=== PATIENT | male | born 1945 | race Caucasian/White ===

== ENCOUNTER 2022-03-23 06:46 | Day surgery (SDC) | payer MEDICARE, SELFPAY ==
[2022-03-22 10:59] LABS: BASOPHILS # (AUTO) 0.1 X10'3 (0-0.2); BASOPHILS % (AUTO) 0.5 % (0-1); EOSINOPHILS # (AUTO) 0.2 X10'3 (0-0.9); EOSINOPHILS % (AUTO) 1.6 % (0-6); HEMATOCRIT 34.3 % (42.0-52.0); HEMOGLOBIN 11.6 g/dl (14.0-17.9); LYMPHOCYTES # (AUTO) 1.1 X10'3 (1.1-4.8); LYMPHOCYTES % (AUTO) 10.7 % (21-51); MEAN CORPUSCULAR HGB CONC 33.9 g/dL (33.0-36.5); MEAN CORPUSCULAR VOLUME 91.6 FL (78-98); MEAN PLATELET VOLUME 9.5 FL (7.4-10.4); MONOCYTES # (AUTO) 0.8 X10'3 (0-0.9); MONOCYTES % (AUTO) 7.4 % (2-12); NEUTROPHILS # (AUTO) 8.6 X10'3 (1.8-7.7); NEUTROPHILS % (AUTO) 79.8 % (42-75); PLATELET COUNT 178 X10'3 (140-440); RED BLOOD COUNT 3.75 X10'6 (4.70-6.10); RED CELL DISTRIBUTION WIDTH 16.3 % (11.5-14.5); WHITE BLOOD COUNT 10.8 X10'3 (4.5-11.0)
[2022-03-22 11:10] LABS: ALBUMIN 4.2 G/DL (3.4-5.0); ANION GAP 10 (8-16); BLOOD UREA NITROGEN 30 MG/DL (7-18); BUN/CREATININE RATIO 18.8 (5.4-32.0); CALCIUM 10.5 MG/DL (8.5-10.1); CHLORIDE 97 MMOL/L (99-107); GLUCOSE 169 MG/DL (70-104); POTASSIUM 4.4 MMOL/L (3.5-5.1); SODIUM 138 MMOL/L (135-145); TOTAL CARBON DIOXIDE 31.4 MMOL/L (24-32); eGFR 42 ML/MIN
[~2022-03-23] VITALS: Ht 172.7 cm; Wt 88.0 kg
[2022-03-23] VITALS (11 sets, daily range): BP systolic 104–126; BP diastolic 53–71
[~2022-03-23 06:46] MED LIST: ACET-75 PO; ALLO300T2 PO; COU7.5T PO; ENOX30SY10 SUBCUT; ENOX80SY7 SUBCUT; FURO40TA4 PO; GABA-532 PO; GLIP5TAB13 PO; LAN0.125T PO; LISI-642 PO; LOP25T PO; MAGN400C PO; OMEG1CAP2 PO; POTA-197 PO; SIMV-45 PO; SPIR25TA5 PO; WARF-113 PO
[2022-03-23] MEDS ORDERED: ceFAZolin inj. 2,000 MG in dextrose 5%-water 100 ML IV ONE (07:02)
[2022-03-23] MEDS ORDERED: normal saline 1000ml 1,000 ML IV SCH (07:02)
[2022-03-23] MEDS ORDERED: METF-900 PO (08:10)
[2022-03-23] MEDS ORDERED: CYAN500T71 PO (08:10)
[2022-03-23] MEDS ORDERED: DICL100G30 TOP (08:10)
[2022-03-23] MEDS ORDERED: FURO-150 PO ×2 (08:10)
[2022-03-23] MEDS ORDERED: ENOX100D5 SQ (08:10)
[2022-03-23] MEDS ORDERED: GLIP10TA11 PO (08:10)
[2022-03-23 08:56] LABS: APTT 28 SECONDS (22-32)
[2022-03-23] MEDS ORDERED: fentaNYL/PF 50MCG/1 ML 2ML syringe ONE (09:55)
[2022-03-23] MEDS ORDERED: vancomycin 1,000mg inj ONE (09:55)
[2022-03-23] MEDS ORDERED: midazolam 1 mg/ML 2ml injection ONE (09:55)
[2022-03-23] MEDS ORDERED: LIDOCAINE 1%/EPI 1:100,000 inj. 10 ML multi-dose vial ONE (09:55)
[2022-03-23] MEDS ORDERED: ceFAZolin 1000mg inj ONE (10:28)
[2022-03-23] MEDS ORDERED: normal saline 1000ml 400 ML IV SCH (12:14)
[2022-03-23] MEDS ORDERED: HYDROcodone/acetaminophen 10/325mg tab PO PRN (12:15)
[2022-03-23] MEDS ORDERED: HYDROcodone/acetaminophen 5mg/325mg tablet PO PRN (12:15)
[2022-03-23] MEDS ORDERED: vancomycin/NS 1 GM in NS 250 ML IV ONE (12:30)
[2022-03-23] MEDS ORDERED: acetaminophen 325mg tablet PO ONE (13:45)
[2022-03-23] MEDS ORDERED: ACETAMINOPHEN PO SCH (20:00)
== END 2022-03-23 15:55 | disposition home or self-care (01) ==
LOC: SSTAY O 06:46
PROVIDERS: ATTEND Internal Medicine Cardiovascular Disease
DX: Z45.010 Encounter for checking and testing of cardiac pacemaker pulse generator [battery] (principal); I49.5 Sick sinus syndrome; I25.10 Atherosclerotic heart disease of native coronary artery without angina pectoris; I50.9 Heart failure, unspecified; E78.5 Hyperlipidemia, unspecified; F32.9 Major depressive disorder, single episode, unspecified; M10.9 Gout, unspecified; I13.0 Hypertensive heart and chronic kidney disease with heart failure and stage 1 through stage 4 chronic kidney disease, or unspecified chronic kidney disease; N18.9 Chronic kidney disease, unspecified; E11.22 Type 2 diabetes mellitus with diabetic chronic kidney disease; Z79.899 Other long term (current) drug therapy; Z86.73 Personal history of transient ischemic attack (TIA), and cerebral infarction without residual deficits
CPT/HCPCS: 33227; 36415; 80048; 82948; 85025; 85610; 85730; 93005; 99152; 99153; C1786; J0690; J2250; J3010; J3370; J3490; J7030; 33228; A4615

== ENCOUNTER 2022-03-26 13:14 | Emergency (ER) | payer OTHER, MEDICARE ==
[~2022-03-26] VITALS: Ht 172.7 cm; Wt 86.4 kg
[~2022-03-26 13:14] MED LIST changes: +CYAN500T71 PO; +DICL100G30 TOP; +ENOX100D5 SQ; -ENOX30SY10 SUBCUT; -ENOX80SY7 SUBCUT; +FURO-150 PO; -FURO40TA4 PO; +GLIP10TA11 PO; -GLIP5TAB13 PO; +METF-900 PO; -WARF-113 PO
[2022-03-26 15:30] LABS: BASOPHILS % (AUTO) 0.5 % (0-1); EOSINOPHILS # (AUTO) 0.1 X10'3 (0-0.9); EOSINOPHILS % (AUTO) 1.5 % (0-6); HEMATOCRIT 31.4 % (42.0-52.0); HEMOGLOBIN 10.4 g/dl (14.0-17.9); LYMPHOCYTES # (AUTO) 1.1 X10'3 (1.1-4.8); LYMPHOCYTES % (AUTO) 11.6 % (21-51); MEAN CORPUSCULAR HEMOGLOBIN 31.1 PG (27.0-31.0); MEAN CORPUSCULAR HGB CONC 33.3 g/dL (33.0-36.5); MEAN CORPUSCULAR VOLUME 93.6 FL (78-98); MEAN PLATELET VOLUME 9.8 FL (7.4-10.4); MONOCYTES # (AUTO) 0.7 X10'3 (0-0.9); MONOCYTES % (AUTO) 7.6 % (2-12); NEUTROPHILS # (AUTO) 7.5 X10'3 (1.8-7.7); NEUTROPHILS % (AUTO) 78.8 % (42-75); PLATELET COUNT 175 X10'3 (140-440); RED BLOOD COUNT 3.35 X10'6 (4.70-6.10); RED CELL DISTRIBUTION WIDTH 16.2 % (11.5-14.5); WHITE BLOOD COUNT 9.5 X10'3 (4.5-11.0)
[2022-03-26 15:35] LABS: APTT 44 SECONDS (22-32)
[2022-03-26 15:37] LABS: ALANINE AMINOTRANSFERASE 24 U/L (12-78); ALBUMIN 3.9 G/DL (3.4-5.0); ALBUMIN/GLOBULIN RATIO 1.1 (1.1-1.5); ALKALINE PHOSPHATASE 74 IU/L (46-116); ANION GAP 5 (8-16); ASPARTATE AMINO TRANSFERASE 41 U/L (10-37); BILIRUBIN,TOTAL 1.5 MG/DL (0.1-1.0); BLOOD UREA NITROGEN 40 MG/DL (7-18); BUN/CREATININE RATIO 23.7 (5.4-32.0); CALCIUM 10.5 MG/DL (8.5-10.1); CHLORIDE 100 MMOL/L (99-107); CREATININE 1.69 MG/DL (0.60-1.10); GLUCOSE 277 MG/DL (70-104); POTASSIUM 4.7 MMOL/L (3.5-5.1); SODIUM 137 MMOL/L (135-145); TOTAL CARBON DIOXIDE 31.9 MMOL/L (24-32); TOTAL PROTEIN 7.6 G/DL (6.4-8.2); eGFR 40 ML/MIN
[2022-03-26] MEDS ORDERED: CEPH-585 PO (20:02)
--- NOTE | 2022-03-26 20:20 | NUR ---
DRESSING APPLIED TO LEFT PPM SITE PER PA'S INSTRUCTION, SITE CLEASNSED WITH BETADINE WITH STERILE GAUZE AND SWAPS WITH STERILE GLOVES 1 INCH FOAM TAPE BACK TO FRONT WITHOUT GAPS AND REINFORCED WITH SILK. PT TOLERATED WELL.
[2022-03-26 20:22] VITALS: BP 126/67
== END 2022-03-26 20:26 | disposition home or self-care (01) ==
LOC: ER 13:14
DX: I97.638 Postprocedural hematoma of a circulatory system organ or structure following other circulatory system procedure (principal); E11.9 Type 2 diabetes mellitus without complications
CPT/HCPCS: 80053; 85025; 85610; 85730; 99283; A6449

== ENCOUNTER 2022-06-27 14:20 | Emergency (ER) | payer OTHER, MEDICARE ==
[~2022-06-27] VITALS: Ht 172.7 cm; Wt 89.1 kg
[~2022-06-27 14:20] MED LIST changes: +CEPH-585 PO
[2022-06-27] MEDS ORDERED: vancomycin/NS 1 GM ADD-VANTAGE 250 ML IV ONE (17:50)
[2022-06-27 18:00] LABS: BASOPHILS # (AUTO) 0.1 X10'3 (0-0.2); BASOPHILS % (AUTO) 0.8 % (0-1); EOSINOPHILS # (AUTO) 0.3 X10'3 (0-0.9); EOSINOPHILS % (AUTO) 3.2 % (0-6); HEMATOCRIT 35.5 % (42.0-52.0); HEMOGLOBIN 11.6 g/dl (14.0-17.9); LYMPHOCYTES # (AUTO) 1.6 X10'3 (1.1-4.8); LYMPHOCYTES % (AUTO) 15.6 % (21-51); MEAN CORPUSCULAR HEMOGLOBIN 30.1 PG (27.0-31.0); MEAN CORPUSCULAR HGB CONC 32.7 g/dL (33.0-36.5); MEAN CORPUSCULAR VOLUME 92.1 FL (78-98); MEAN PLATELET VOLUME 9.8 FL (7.4-10.4); MONOCYTES # (AUTO) 0.7 X10'3 (0-0.9); MONOCYTES % (AUTO) 6.6 % (2-12); NEUTROPHILS # (AUTO) 7.7 X10'3 (1.8-7.7); NEUTROPHILS % (AUTO) 73.8 % (42-75); PLATELET COUNT 153 X10'3 (140-440); RED BLOOD COUNT 3.85 X10'6 (4.70-6.10); WHITE BLOOD COUNT 10.4 X10'3 (4.5-11.0)
[2022-06-27 18:11] LABS: APTT 39 SECONDS (22-32)
[2022-06-27 18:14] LABS: ALANINE AMINOTRANSFERASE 13 U/L (12-78); ALBUMIN 4.1 G/DL (3.4-5.0); ALBUMIN/GLOBULIN RATIO 1.2 (1.1-1.5); ALKALINE PHOSPHATASE 79 IU/L (46-116); ANION GAP 7 (8-16); ASPARTATE AMINO TRANSFERASE 32 U/L (10-37); BILIRUBIN,TOTAL 1.7 MG/DL (0.1-1.0); BLOOD UREA NITROGEN 32 MG/DL (7-18); BUN/CREATININE RATIO 20.9 (5.4-32.0); CALCIUM 10.4 MG/DL (8.5-10.1); CHLORIDE 101 MMOL/L (99-107); CREATININE 1.53 MG/DL (0.60-1.10); GLUCOSE 124 MG/DL (70-104); POTASSIUM 4.2 MMOL/L (3.5-5.1); SODIUM 138 MMOL/L (135-145); TOTAL CARBON DIOXIDE 29.8 MMOL/L (24-32); TOTAL PROTEIN 7.6 G/DL (6.4-8.2); eGFR 45 ML/MIN
[2022-06-28 05:30] VITALS: BP 121/68
== END 2022-06-28 06:17 | disposition short-term general hospital (02) ==
LOC: ER 14:20
DX: T82.7XXA Infection and inflammatory reaction due to other cardiac and vascular devices, implants and grafts, initial encounter (principal); I10 Essential (primary) hypertension; I11.9 Hypertensive heart disease without heart failure; E11.9 Type 2 diabetes mellitus without complications; Z79.899 Other long term (current) drug therapy
CPT/HCPCS: 36415; 80053; 83605; 84145; 85025; 85610; 85730; 87040; 96365; 99291; J3370

== ENCOUNTER 2022-07-26 10:57 | Emergency (ER) | payer OTHER, MEDICARE ==
[~2022-07-26] VITALS: Ht 172.7 cm; Wt 100.0 kg
[2022-07-26 11:25] LABS: BASOPHILS # (AUTO) 0.1 X10'3 (0-0.2); BASOPHILS % (AUTO) 0.6 % (0-1); EOSINOPHILS # (AUTO) 0.5 X10'3 (0-0.9); EOSINOPHILS % (AUTO) 4.7 % (0-6); HEMATOCRIT 27.5 % (42.0-52.0); HEMOGLOBIN 8.8 g/dl (14.0-17.9); LYMPHOCYTES # (AUTO) 0.9 X10'3 (1.1-4.8); LYMPHOCYTES % (AUTO) 8.4 % (21-51); MEAN CORPUSCULAR HEMOGLOBIN 29.5 PG (27.0-31.0); MEAN CORPUSCULAR HGB CONC 31.9 g/dL (33.0-36.5); MEAN CORPUSCULAR VOLUME 92.4 FL (78-98); MEAN PLATELET VOLUME 8.3 FL (7.4-10.4); MONOCYTES # (AUTO) 0.9 X10'3 (0-0.9); MONOCYTES % (AUTO) 8.1 % (2-12); NEUTROPHILS # (AUTO) 8.3 X10'3 (1.8-7.7); NEUTROPHILS % (AUTO) 78.2 % (42-75); PLATELET COUNT 207 X10'3 (140-440); RED BLOOD COUNT 2.98 X10'6 (4.70-6.10); RED CELL DISTRIBUTION WIDTH 17.9 % (11.5-14.5); WHITE BLOOD COUNT 10.5 X10'3 (4.5-11.0)
[2022-07-26 11:44] LABS: ALBUMIN 3.5 G/DL (3.4-5.0); ANION GAP 7 (8-16); ASPARTATE AMINO TRANSFERASE 35 U/L (10-37); BILIRUBIN,TOTAL 1.5 MG/DL (0.1-1.0); BLOOD UREA NITROGEN 22 MG/DL (7-18); BUN/CREATININE RATIO 13.8 (10.0-20.0); CALCIUM 9.8 MG/DL (8.5-10.1); CHLORIDE 103 MMOL/L (99-107); GLUCOSE 184 MG/DL (70-104); POTASSIUM 4.2 MMOL/L (3.5-5.1); SODIUM 138 MMOL/L (135-145); TOTAL CARBON DIOXIDE 27.8 MMOL/L (24-32); TOTAL PROTEIN 7.1 G/DL (6.4-8.2); eGFR 42 ML/MIN
[2022-07-26 11:45] LABS: ALANINE AMINOTRANSFERASE 16 U/L (12-78); ALKALINE PHOSPHATASE 136 IU/L (46-116)
[2022-07-26 11:51] LABS: MAGNESIUM 2.3 MG/DL (1.5-2.4)
--- NOTE | 2022-07-26 12:10 | NUR ---
León ROWE in the room.
[2022-07-26] MEDS ORDERED: furosemide 10 MG/1 ML 10ml inj IV ONE (12:35)
[2022-07-26] MEDS ORDERED: FURO-150 PO (12:57)
[2022-07-26 13:27] VITALS: BP 146/73
== END 2022-07-26 13:34 | disposition home or self-care (01) ==
LOC: ER 10:57
DX: I11.0 Hypertensive heart disease with heart failure (principal); I50.23 Acute on chronic systolic (congestive) heart failure; I50.33 Acute on chronic diastolic (congestive) heart failure; E11.9 Type 2 diabetes mellitus without complications
CPT/HCPCS: 36415; 71045; 80053; 83735; 83880; 84484; 85025; 93005; 96374; 99285; J1940

== ENCOUNTER 2022-08-18 10:19 | Outpatient (CLI) | payer MEDICARE, SELFPAY | END 2022-08-18 23:59 | disposition home or self-care (01) | LOC: CARD DIAG 10:19 | PROVIDERS: ATTEND Internal Medicine Cardiovascular Disease | DX: I08.3 Combined rheumatic disorders of mitral, aortic and tricuspid valves (principal); I50.22 Chronic systolic (congestive) heart failure; R06.02 Shortness of breath | CPT/HCPCS: 93306 ==

== ENCOUNTER 2023-02-26 09:21 | Emergency (ER) | payer OTHER, MEDICARE ==
[~2023-02-26] VITALS: Ht 172.7 cm; Wt 92.0 kg
[~2023-02-26 09:21] MED LIST changes: -DICL100G30 TOP; +DICL100G59 TOP
[2023-02-26 09:45] VITALS: TEMP 98.9
[2023-02-26] MEDS ORDERED: normal saline 1000ML IV soln IV ONE (10:25)
[2023-02-26 11:00] LABS: BASOPHILS % (AUTO) 0.4 % (0-1); EOSINOPHILS % (AUTO) 0.1 % (0-6); HEMATOCRIT 23.2 % (42.0-52.0); HEMOGLOBIN 7.6 g/dl (14.0-17.9); LYMPHOCYTES # (AUTO) 0.6 X10'3 (1.1-4.8); LYMPHOCYTES % (AUTO) 6.7 % (21-51); MEAN CORPUSCULAR HEMOGLOBIN 30.1 PG (27.0-31.0); MEAN CORPUSCULAR HGB CONC 32.9 g/dL (33.0-36.5); MEAN CORPUSCULAR VOLUME 91.5 FL (78-98); MEAN PLATELET VOLUME 10.6 FL (7.4-10.4); MONOCYTES % (AUTO) 11.7 % (2-12); NEUTROPHILS % (AUTO) 81.1 % (42-75); PLATELET COUNT 123 X10'3 (140-440); RED BLOOD COUNT 2.53 X10'6 (4.70-6.10); RED CELL DISTRIBUTION WIDTH 17.6 % (11.5-14.5); WHITE BLOOD COUNT 8.7 X10'3 (4.5-11.0)
[2023-02-26 11:05] LABS: ALANINE AMINOTRANSFERASE 17 U/L (12-78); ALBUMIN 3.3 G/DL (3.4-5.0); ALKALINE PHOSPHATASE 82 IU/L (46-116); ANION GAP 8 (8-16); ASPARTATE AMINO TRANSFERASE 35 U/L (10-37); BLOOD UREA NITROGEN 46 MG/DL (7-18); BUN/CREATININE RATIO 16.6 (10.0-20.0); CALCIUM 9.3 MG/DL (8.5-10.1); CHLORIDE 101 MMOL/L (99-107); CREATININE 2.77 MG/DL (0.60-1.10); GLUCOSE 186 MG/DL (70-104); MAGNESIUM 2.4 MG/DL (1.5-2.4); POTASSIUM 4.8 MMOL/L (3.5-5.1); SODIUM 134 MMOL/L (135-145); TOTAL CARBON DIOXIDE 24.7 MMOL/L (24-32); TOTAL PROTEIN 6.5 G/DL (6.4-8.2); eCRCL 22 ML/MIN; eGFR 22 ML/MIN
[2023-02-26 12:19] LABS: DIGOXIN 2.5 NG/ML (0.9-1.9)
[2023-02-26 13:20] VITALS: BP 95/55; PULSE 70; RESP 17; O2SAT 94
== END 2023-02-26 13:22 | disposition home or self-care (01) ==
LOC: ER 09:21
DX: D64.9 Anemia, unspecified (principal); Z20.822 Contact with and (suspected) exposure to COVID-19; E86.0 Dehydration
CPT/HCPCS: 36415; 71045; 80053; 80162; 83605; 83735; 84145; 85025; 87040; 87502; 87503; 87811; 93005; 96360; 99285; J7030

== ENCOUNTER 2023-03-07 05:06 | Emergency (ER) | payer OTHER, MEDICARE ==
[~2023-03-07] VITALS: Ht 175.3 cm; Wt 90.9 kg
[2023-03-07 05:24] VITALS: TEMP 98
[2023-03-07 09:14] LABS: BASOPHILS % (AUTO) 0.3 % (0-1); EOSINOPHILS # (AUTO) 0.1 X10'3 (0-0.9); EOSINOPHILS % (AUTO) 1.4 % (0-6); HEMATOCRIT 25.2 % (42.0-52.0); HEMOGLOBIN 8.3 g/dl (14.0-17.9); LYMPHOCYTES # (AUTO) 1.1 X10'3 (1.1-4.8); LYMPHOCYTES % (AUTO) 11.6 % (21-51); MEAN CORPUSCULAR HEMOGLOBIN 30.4 PG (27.0-31.0); MEAN CORPUSCULAR VOLUME 92.1 FL (78-98); MEAN PLATELET VOLUME 10.1 FL (7.4-10.4); MONOCYTES # (AUTO) 0.9 X10'3 (0-0.9); MONOCYTES % (AUTO) 8.9 % (2-12); NEUTROPHILS # (AUTO) 7.4 X10'3 (1.8-7.7); NEUTROPHILS % (AUTO) 77.8 % (42-75); PLATELET COUNT 183 X10'3 (140-440); RED BLOOD COUNT 2.74 X10'6 (4.70-6.10); RED CELL DISTRIBUTION WIDTH 18.5 % (11.5-14.5); WHITE BLOOD COUNT 9.6 X10'3 (4.5-11.0)
[2023-03-07 09:29] LABS: APTT 48 SECONDS (22-32); PROTHROMBIN TIME 29.7 SECONDS (9.0-12.0)
[2023-03-07 09:43] LABS: ALANINE AMINOTRANSFERASE 15 U/L (12-78); ALBUMIN 3.8 G/DL (3.4-5.0); ALBUMIN/GLOBULIN RATIO 1.1 (1.1-1.5); ALKALINE PHOSPHATASE 104 IU/L (46-116); ANION GAP 10 (8-16); ASPARTATE AMINO TRANSFERASE 70 U/L (10-37); BILIRUBIN,TOTAL 3.3 MG/DL (0.1-1.0); BLOOD UREA NITROGEN 30 MG/DL (7-18); BUN/CREATININE RATIO 17.5 (10.0-20.0); CALCIUM 9.9 MG/DL (8.5-10.1); CHLORIDE 99 MMOL/L (99-107); CREATININE 1.71 MG/DL (0.60-1.10); GLUCOSE 144 MG/DL (70-104); SODIUM 136 MMOL/L (135-145); TOTAL CARBON DIOXIDE 26.9 MMOL/L (24-32); TOTAL PROTEIN 7.2 G/DL (6.4-8.2); eCRCL 37 ML/MIN; eGFR 39 ML/MIN
[2023-03-07 09:44] LABS: POTASSIUM 4.3 MMOL/L (3.5-5.1)
[2023-03-07 10:16] LABS: ANISOCYTOSIS 2+; PLATELET ESTIMATE NORMAL; TOTAL CELLS COUNTED 100
[2023-03-07 10:17] LABS: ELLIPTOCYTES FEW; SCHISTOCYTES FEW
[2023-03-07 10:55] VITALS: BP 119/59; PULSE 71; RESP 18; O2SAT 97
--- NOTE | 2023-03-07 10:55 | NUR ---
I have reviewed and agree with all interventions, assessments performed and documented by ROSITA Ramos.
[2023-03-07] MEDS ORDERED: AMOX-117 PO ×2 (11:38)
== END 2023-03-07 12:10 | disposition home or self-care (01) ==
LOC: ER 05:07
DX: R04.0 Epistaxis (principal); I11.0 Hypertensive heart disease with heart failure; I10 Essential (primary) hypertension; E11.9 Type 2 diabetes mellitus without complications; Z88.8 Allergy status to other drugs, medicaments and biological substances; Z79.899 Other long term (current) drug therapy
CPT/HCPCS: 30901; 36415; 80053; 82948; 85007; 85025; 85610; 85730; 99284

== ENCOUNTER 2024-11-20 09:37 | Inpatient (IN) | payer OTHER, MEDICARE ==
[~2024-11-20] VITALS: Ht 172.7 cm; Wt 92.7 kg
[2024-11-20] VITALS (11 sets, daily range): BP systolic 92–115; BP diastolic 49–78; PULSE 69–78; RESP 12–18; TEMP 97.1–97.9; O2SAT 97–100
[~2024-11-20 09:37] MED LIST changes: -CEPH-585 PO; -ENOX100D5 SQ; -GLIP10TA11 PO; +GLIP10TA18 PO
--- NOTE | 2024-11-20 10:01 | ELECTROCARDIOGRAPH REPORT ---
[facility] Test Date: 2024-11-20 Test Time: 09:49:37 Pat Name: SHARDA STEEL Department: EMERGENCY ROOM Room: [facility]TH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 Pablito Watts Measurements Intervals [place] Rate: 70 P: 0 ND: 31 QRS: -40 QRSD: 180 T: 122 QT: 461 QTc: 498 Interpretive Statements Ventricular-paced rhythm No further analysis attempted due to paced rhythm Baseline wander in lead(s) V3 Electronically Signed On 11-22-2024 19:27:[address] Pablito Watts Please click the below link to view image of tracing.
[2024-11-20 10:21] LABS: MEAN PLATELET VOLUME 10.3 FL (7.4-10.4); RED CELL DISTRIBUTION WIDTH 18.1 % (11.5-14.5)
[2024-11-20 10:34] LABS: CREATININE 4.36 MG/DL (0.60-1.10); PRO BRAIN NATRIURETIC PEPTIDE 181 PG/ML (0-450); TOTAL CARBON DIOXIDE 22.7 MMOL/L (24-32); eCRCL 14 ML/MIN; eGFR 13 ML/MIN
--- NOTE | 2024-11-20 10:44 | RADIOLOGY REPORT ---
CHEST RADIOGRAPH Indication: CP Technique: Single frontal view of the chest was obtained COMPARISON: DI CHEST,SINGLE VIEW on DOS: 03/08/23, DI CHEST,SINGLE VIEW on DOS: 02/26/23, CHEST,SINGLE VIEW on DOS: 07/26/22 FINDINGS: Lines and Tubes: Right chest pacemaker. Median sternotomy. Lungs: Congestion Pleura: No effusion. No pneumothorax. Cardiomediastinal contours: Cardiomegaly. Moderate hiatal hernia. Bones: Unremarkable IMPRESSION: Pulmonary vascular congestion
--- NOTE | 2024-11-20 10:44 | Physician Documentation ---
History of Present Illness ~ Chief Complaint: Weakness Stated Complaint: WEAKNESS Time Seen by MD: 09:59 OK to notify your PCP?: Yes Primary Medical Doctor: SRIKANTH MARKHAM Source: patient, family Mode of Arrival: POV Exam Limitations: no limitations HPI In with a history of CKD, [place] valve, pacemaker,"tricuspid clips", diabetes in with feeling weak over the past week. No chest pain or shortness of breath. This morning he noticed some mild lower abdominal pain. No blood in his stool. No problems urinating. No nausea or vomiting. No chest pain or shortness of breath. He gets shots for anemia for his chronic kidney disease. His reports that last week his hemoglobin was 7.5 and she is concerned that his hemoglobin has dropped too low and needs a transfusion. He has had to have a couple of transfusions over his lifetime. reports that the kidney specialist told him he is not a candidate for dialysis given his heart disease. Day of Onset: Nov 20, 2024 Medication Reconciliation Allergies: Coded Allergies: No Known Allergies (Unverified , 11/20/24) Scheduled Acetaminophen (Acetaminophen), 2 TABLET PO BID, (Reported) Allopurinol* (Allopurinol*), 2 TAB PO DAILY, (Reported) Cyanocobalamin* (Vitamin B-12*), 1 TAB PO DAILY, (Reported) Digoxin (Digitek), 1 TABLET PO DAILY, (Reported) Ferrous Sulfate* (Ferrous Sulfate*), 1 TAB PO DAILY, (Reported) Furosemide (Lasix), 4 TAB PO BID, (Reported) Gabapentin (Gabapentin), 1 CAP PO TID, (Reported) Insulin Glargine,Hum.rec.anlog* (Lantus*), 40 UNITS SUBCUT DAILY, (Reported) Lisinopril* (Zestril*), 1 TABLET PO DAILY, (Reported) Metolazone (ZAROXOLYN tablet), 1 TAB PO DAILY, (Reported) Metoprolol Tartrate* (Lopressor tablet*), 1 TABLET PO BID, (Reported) Potassium Chloride (Klor-Con M20), 1 TABLET PO DAILY, (Reported) Simvastatin (Simvastatin), 1 TABLET PO HS, (Reported) Sitagliptin (Sitagliptin), 1 TAB PO DAILY, (Reported) Spironolactone (Spironolactone), 1 TABLET PO BID, (Reported) Warfarin Sodium (Warfarin Sodium), 1 TAB PO DAILY, (Reported) Warfarin Sodium* (Coumadin*), 1 TABLET PO DAILY, (Reported) Scheduled PRN Metolazone (Metolazone), 1 TAB PO DAILY PRN for PRN, (Reported) Miscellaneous Medications Epoetin Troy (Epogen), (Reported) Insuln Asp Prt/Insulin Aspart (Novolog Mix 70-30 Flexpen Syrn), 3 ML SQ, (Reported) Discontinued Medications Allopurinol (Zyloprim), 1 TABLET PO DAILY, (Reported) Discontinued Reason: patient no longer taking Diclofenac Sodium (Diclofenac Sodium), 1 APPLIC TOP Q6H, (Reported) Discontinued Reason: patient no longer taking Furosemide (Lasix), 3 TAB PO HS, (Reported) Discontinued Reason: patient no longer taking Glipizide (Glipizide), 1 TAB PO BID, (Reported) Discontinued Reason: patient no longer taking Magnesium Oxide (Magnesium), 1 CAP PO BID, (Reported) Discontinued Reason: patient no longer taking Metformin Hcl* (Metformin ER*), 4 TAB PO HS, (Reported) Discontinued Reason: patient no longer taking Lucan-3 Fatty Acids/Fish Oil (Fish Oil 1,000 mg Capsule), 1 TAB PO BID, (Reported) Discontinued Reason: patient no longer taking Past Medical History Past Medical History: Arrhythmia, Heart Valve Disease, Hypertension, Diabetes, Gout Past Surgical History: heart valve surgery, pacemaker Alcohol Use: None Drug Use: none Lives with: Spouse Lives In: Home Occupation: retired Review of Systems All Other Systems at this time: Reviewed and Negative Physical Exam Vital Signs: Temperature: 97.9, Source: Temporal, Heart Rate: 70, Respiratory Rate: 16, BP: 93/42, Pulse Oximetry: 97, Weight: 92.730 Oxygen Flow Rate: 0 General Appearance: no apparent distress, somnolent Neck: non-tender, full range of motion Head: normal Pupils/EOM/Fundus: PERRLA, EOM intact Respiratory: lungs clear, normal breath sounds, no respiratory distress Chest: no accessory muscle use Cardiovascular: regular rate, rhythm, no edema, no JVD, no murmur Gastrointestinal: normal palpation, other (Trace tenderness across the lower abdomen) Skin: warm/dry, normal color Orientation / Memory / CN: oriented x3, memory intact Motor / Sensory: no motor deficit, no sensory deficit Cerebellar Function: normal Psych: appropriate Progress Progress Note Patient in with CKD and chronic anemia secondary to this. In with progressive weakness over the past week. Worse over the past couple of days. Hemoglobin is 7.4. Creatinine is greater than 4. A couple of years ago here at our facility it was 1.9. I did order an additional L of fluids and 2 units of blood. Blood pressure is soft. Urinalysis is still pending so may need treatment if positive for urinary tract infection. No leukocytosis. Normal lactate. Discussed with hospitalist team who will admit for further treatment. Critical care time spent 30 minutes with patient care, chart work and consultation. Results/Orders Results/Orders Orders - HONORIO DEWITT MD Chest,Single View (11/20/24 10:04) Monitor (11/20/24 10:04) Saline Lock (11/20/24 10:04) Oxygen (11/20/24 10:04) Hs Troponin I W Calculations (11/20/24 13:04) Culture Blood (11/20/24 10:11) Type And Screen (11/20/24 10:11) Urinalysis, Cult If Indicated (11/20/24 11:45) Page Hospitalist (11/20/24 ) Normal Saline 1000ml (0.9% Sodium Chlori (11/20/24 12:35) Lrpc - Active Bleeding (11/20/24 12:32) Completed Orders - HONORIO DEWITT MD Chest,Single View (11/20/24 10:04) Cbc/Diff (11/20/24 10:04) BMP (11/20/24 10:04) PBNP (11/20/24 10:04) Hs Troponin I W Calculations (11/20/24 10:04) Hs Troponin I W Calculations (11/20/24 12:04) Lacticsepsis (11/20/24 10:10) Normal Saline 1000ml (0.9% Sodium Chlori (11/20/24 10:15) Medications Received in ER Medications (Trade) Dose Ordered Sig/Vick Route PRN Reason Start Time Stop Time Status Last Admin Dose Admin Sodium Chloride 1,000 ml @ 1,000 mls/hr ONCE ONCE IV 11/20/24 10:15 11/20/24 11:14 DC 11/20/24 10:46 1,000 MLS/HR Vital Signs 11/20/24 11/20/24 11/20/24 09:50 10:59 11:08 Temp 97.9 Pulse 70 70 Resp 16 16 18 B/P (MAP) 93/42 92/48 (63) Pulse Ox 97 98 O2 Flow Rate 0 Laboratory Tests Test 11/20/24 09:46 11/20/24 12:22 11/20/24 12:41 White Blood Count 7.9 Red Blood Count 2.36 L Hemoglobin 7.4 L Hematocrit 22.4 L Mean Corpuscular Volume 95.1 Mean Corpuscular Hemoglobin 31.5 H Mean Corpuscular Hemoglobin Concent 33.2 Red Cell Distribution Width 18.1 H Platelet Count 119 L Mean Platelet Volume 10.3 Neutrophils (%) (Auto) 75.4 H Lymphocytes (%) (Auto) 10.7 L Monocytes (%) (Auto) 10.3 Eosinophils (%) (Auto) 2.7 Basophils (%) (Auto) 0.9 Neutrophils # (Auto) 6.0 Lymphocytes # (Auto) 0.8 L Monocytes # (Auto) 0.8 Eosinophils # (Auto) 0.2 Basophils # (Auto) 0.1 CBC Comment Sodium Level 136 Potassium Level 4.7 Chloride Level 100 Carbon Dioxide Level 22.7 L Anion Gap 13 Blood Urea Nitrogen 117 H Creatinine 4.36 H Estimated GFR/1.73 m2 13 BUN/Creatinine Ratio 26.8 H Glucose Level 193 H Lactic Acid Level 1.5 Calcium Level 10.8 H Troponin I High Sensitivity 15 15 Pro-B-Type Natriuretic Peptide 181 Albumin 3.7 Chemistry Comments Troponin I High Sens Percent Delta 0 Troponin I Hi Sens Absolute Change 0 Urine Comment Microbiology Date/Time Source Procedure Growth Status 11/20/24 10:23 Blood Arm Right Blood Culture - Preliminary NEGATIVE (LESS THAN 24 HOURS) Resulted EKG/XRAY/CT/US/VASC/MRI EKG : EKG Rate: 70 EKG: no ST T wave changes, AK (31) Medical Decision Making Additional Information Differential includes but is not limited to: Anemia of chronic diseases, dehydration, electrolyte derangement, pneumonia, urinary tract infection, DKA my sepsis Departure Disposition: ADMITTED INPATIENT Admitted to Inpatient Unit: yes, to hospitalist Admission Level of Care: Med/Surg with Tele Impression: Primary Impression: Anemia Qualified Codes: N18.9 - Chronic kidney disease, unspecified; D63.1 - Anemia in chronic kidney disease Additional Impressions: Kidney failure Qualified Codes: N19 - Unspecified kidney failure Hypotension Qualified Codes: I95.9 - Hypotension, unspecified Condition: Guarded Referrals: NO PRIMARY CARE PROVIDER (PCP) Signature Scribe Signature: No scribe used Attestation: No scribe used HONORIO DEWITT MD Nov 20, 2024 10:44
[2024-11-20] MEDS: normal saline 1000ml 1,000 ML IV ONE ×2 (10:46→13:20)
[2024-11-20] MEDS ORDERED: WARF-55 PO (11:21)
[2024-11-20] MEDS ORDERED: ALLO100T PO (11:21)
[2024-11-20] MEDS ORDERED: SITA25TA PO (11:21)
[2024-11-20] MEDS ORDERED: LANTUS SUBCUT (11:26)
[2024-11-20] MEDS ORDERED: HUM7525 SQ (11:26)
[2024-11-20] MEDS ORDERED: ZAR2.5T PO (11:26)
[2024-11-20] MEDS ORDERED: EPOE40002 (11:26)
[2024-11-20] MEDS ORDERED: FERR325T28 PO (11:26)
[2024-11-20] MEDS ORDERED: potassium Cl 20 mEq SR tablet PO PRN ×2 (12:45)
[2024-11-20] MEDS ORDERED: magnesium hydroxide 30ml (MOM) UD suspension PO PRN (12:45)
[2024-11-20] MEDS ORDERED: magnesium sulf-water 4G/100mL 100 ML IV PRN (12:45)
[2024-11-20] MEDS ORDERED: ondansetron/PF 4mg/2ml inj IV PRN (12:45)
[2024-11-20] MEDS ORDERED: potassium Cl 40MEQ/1/2NS 520ml 520 ML IV PRN (12:45)
[2024-11-20] MEDS ORDERED: magnesium sulf-water 2g/50mL 50 ML IV PRN (12:45)
[2024-11-20] MEDS ORDERED: mag hydrox/Alum hydrox/simeth 30ml oral suspension PO PRN (12:45)
[2024-11-20 12:52] LABS: LEUKOCYTE ESTERASE ,URINE NEGATIVE (Neg); NITRITES, URINE NEGATIVE (Neg); OCCULT BLOOD,URINE TRACE-INTACT (Neg)
[2024-11-20 13:04] LABS: UA COLLECTION TYPE CLN CATCH MIDSTREAM
[2024-11-20 13:05] LABS: SQUAMOUS EPITHELIAL CELL,UR NONE SEEN /LPF (FEW)
[2024-11-20] MEDS ORDERED: dextrose 50%-water 50ml dispensing syringe IV PRN ×2 (15:00)
[2024-11-20] MEDS ORDERED: DEXTROSE 15 GM of carb/4 tabs (each vial/BOTTLE has 4 tablets) PO PRN ×2 (15:00)
[2024-11-20] MEDS ORDERED: glucagon, human recombinant 1mg kit SUBCUT PRN (15:00)
[2024-11-20 16:47] LABS: INR 3.5 INR
[2024-11-20] MEDS: INSULIN LISPRO 100 UNIT/ML INSULN.PEN MULTI-DOSE SQ SCH (17:00)
[2024-11-20] MEDS: K and/or MAG REPLACEMENT MC SCH (20:00)
--- NOTE | 2024-11-20 20:19 | HISTORY AND PHYSICAL ---
History & Physical Providers to CC ~ History of Present Illness Reason for Admit\Complaint: Significant weakness with difficulty ambulating History of Present Illness This is a 79-year-old male who is concerned he may require transfusion the patient has notices that when he needs a transfusion he is rather weak the patient does see a senior technical writer for chronic kidney disease and received a Epogen shot recently and he informs me a couple of months ago we had a clipping of his tricuspid valve and ever since his hemoglobin at has been running around the 7-8 previously however his hemoglobin ran around nine. The patient is on Coumadin for a mechanical heart valve. The patient has been weak over the last week but specifically he woke up this morning with severe weakness and difficulty ambulating and decided to come to the ED currently his hemoglobin is 7.4 a ED physician has a ordered 2 units of packed red blood cells to be transfused and I consented the patient for transfusion. The patient's previous creatinine on record was around two a currently his creatinine is 4.36 that is the patient is receiving IV fluid resuscitation. Allergies: Coded Allergies: No Known Allergies (Unverified , 11/20/24) Home Medications Home Medications Active Reported Epogen (Epoetin Troy) 4,000 Unit/Ml Vial Metolazone 2.5 Mg Tablet 1 Tab PO DAILY PRN 30 Days ZAROXOLYN tablet (Metolazone) 2.5 Mg Tablet 1 Tab PO DAILY 30 Days Ferrous Sulfate* (Ferrous Sulfate) 325 Mg Tablet 1 Tab PO DAILY Lantus* (Insulin Glargine) 100 Unit/1 Ml Vial 40 Units SUBCUT DAILY 30 Days Novolog Mix 70-30 Flexpen Syrn (Insuln Asp Prt/Insulin Aspart) 100 Unit/Ml (70- 30) Insuln.pen 3 Ml SQ Warfarin Sodium 5 Mg Tablet 1 Tab PO SUN,TUE, BONILLA,SAT 30 Days Sitagliptin 25 Mg Tablet 1 Tab PO DAILY Allopurinol* (Allopurinol) 100 Mg Tablet 2 Tab PO DAILY Vitamin B-12* (Cyanocobalamin) 500 Mcg Tablet 1 Tab PO DAILY 30 Days Lasix (Furosemide) 20 Mg Tablet 4 Tab PO BID 30 Days Spironolactone 25 Mg Tablet 1 Tablet PO BID Gabapentin 300 Mg Capsule 1 Cap PO TID Zestril* (Lisinopril) 5 Mg Tablet 1 Tablet PO DAILY Klor-Con M20 (Potassium Chloride) 20 Meq Tab.er.prt 1 Tablet PO DAILY Acetaminophen 500 Mg Tablet 2 Tablet PO BID Coumadin* (Warfarin Sodium) 7.5 Mg Tablet 1 Tablet PO MON,WED,FRI Simvastatin 40 Mg Tablet 1 Tablet PO HS Digitek (Digoxin) 125 Mcg (0.125 Mg) Tablet 1 Tablet PO DAILY Lopressor tablet* (Metoprolol Tartrate) 25 Mg Tablet 1 Tablet PO BID Past Medical History Past Medical History 1. Atrial fibrillation. 2. Rheumatic heart disease, status post mechanical mitral valve placement. 3. Hypertension. 4. Diabetes type 2. 5. 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 6. Chronic kidney disease followed by Nephrology 7. Gout Past Surgical History Surgical History Comment 1. Permanent pacemaker placement 2. Mechanical mitral valve on Coumadin 3. Tricuspid valve clipping 4. Bilateral hernia repair in childhood Past Social History Social History Comment Lifelong nonsmoker Does not drink alcohol x2 years Denies any illicit drug use Full code status ROS ROS Except for positives in the HPI the rest of the 14 point review systems is negative Exam Vitals: Vital Signs Date Time Temp Pulse Resp B/P (MAP) Pulse Ox O2 Delivery O2 Flow Rate FiO2 11/20/24 18:45 97.4 69 16 106/56 11/20/24 17:09 97 Room Air 0.0 General: Gen. No acute distress alert and oriented 4 Lungs clear to ascultation bilaterally, no wheezes rales or rhonchi appreciated Heart normal sinus rhythm no murmurs rubs or clicks noted Abdomen soft nontender bowel sounds are normoactive Lower extremities no clubbing cyanosis, nor edema appreciated bilaterally Diagnostic Data Last Recorded Lab Results: 11/20/24 0946 11/20/24 0946 Diagnostic Data: Laboratory Tests Test 11/20/24 15:51 Prothrombin Time 31.6 SECONDS (9.0-12.0) H INR International Normalized Ratio 3.5 INR Coagulation Comments Advance Care Planning Advanced Care plannin - 30 Minutes Problems: (1) Anemia Status: Acute Additional Plan # generalized weakness with a fatigued Likely secondary to anemia ED physician has ordered 2 units of packed red blood cells to be transfused and I consented the patient for transfusion Monitor daily CBC # acute kidney injury on top of chronic kidney disease IV fluid resuscitation is ordered Monitor daily metabolic panel The patient received Epogen shots for chronic anemia # mechanical mitral valve On Coumadin with a goal of an INR between 2.5 and 3.5 # DVT prophylaxis Continue Coumadin I spent a total of 17 minutes on reviewing various resuscitative measures/ ACP with the patient at the time of admission. The patient has decided on full code status Date of Service: Nov 20, 2024 Billing Provider: ASHISH NEWTON DO Common Visit Codes: 55530-[id number] INP/OBS CARE (HIGH) Secondary Visit Codes: 36667-ZBOQXRNR CARE PLAN 30 MINUTES Problem Qualifiers (1) Anemia: Anemia type: due to chronic kidney disease Chronic kidney disease stage: u nspecified stage Qualified Codes: N18.9 - Chronic kidney disease, unspecified; D63.1 - Anemia in chronic kidney disease ASHISH NEWTON DO Nov 20, 2024 20:19
[2024-11-20] MEDS: docusate sod 100mg capsule PO SCH (20:49)
[2024-11-21 05:46] LABS: MEAN PLATELET VOLUME 10.9 FL (7.4-10.4); RED CELL DISTRIBUTION WIDTH 18.9 % (11.5-14.5)
[2024-11-21 06:00] VITALS: BP 104/53; PULSE 70; RESP 16; TEMP 98; O2SAT 95
[2024-11-21 06:00] LABS: INR 3.3 INR
[2024-11-21 06:08] LABS: CREATININE 3.24 MG/DL (0.60-1.10); TOTAL CARBON DIOXIDE 25.7 MMOL/L (24-32); eCRCL 18 ML/MIN; eGFR 19 ML/MIN
[2024-11-21 07:46] LABS: LARGE PLATELETS FEW; PLATELET ESTIMATE DECREASED
[2024-11-21 07:47] LABS: ELLIPTOCYTES FEW
[2024-11-21 08:00] VITALS: RESP 16; O2SAT 95
[2024-11-21 10:00] VITALS: BP 106/54; PULSE 69; RESP 15; TEMP 97.6; O2SAT 98
[2024-11-21] MEDS: normal saline 1000ml 1,000 ML IV ONE (13:39)
[2024-11-21 18:00] VITALS: BP 108/88; PULSE 71; RESP 16; TEMP 97.7; O2SAT 96
--- NOTE | 2024-11-21 18:42 | PROGRESS NOTE ---
Daily Progress Note Providers to CC ~ Antibiotic Timeout Antibiotic Ordered?: No Subjective The patient is wondering with the plan of treatment was not I informed him that has hemoglobin only improved from 7.4-8.4 after transfusion of 2 units packed red blood cells also the patient is receiving IV fluid resuscitation in his creatinine has improved however not at his baseline. Objective Vital Signs Date Time Temp Pulse Resp B/P (MAP) Pulse Ox O2 Delivery O2 Flow Rate FiO2 11/21/24 10:00 97.6 69 15 106/54 (71) 98 Room Air 11/20/24 17:09 0.0 Result Diagram: 11/21/2444711/21/24447 Gen. No acute distress alert and oriented 4 Lungs clear to ascultation bilaterally, no wheezes rales or rhonchi appreciated Heart normal sinus rhythm no murmurs rubs or clicks noted Abdomen soft nontender bowel sounds are normoactive Lower extremities no clubbing cyanosis, nor edema appreciated bilaterally Coagulation Studies Laboratory Tests Test 11/21/24 04:48 Prothrombin Time 29.9 SECONDS (9.0-12.0) H INR International Normalized Ratio 3.3 INR Coagulation Comments Problem\Assessment\Plan Problems/Diagnosis: (1) Anemia # generalized weakness with a fatigued Likely secondary to anemia ED physician has ordered 2 units of packed red blood cells to be transfused and I consented the patient for transfusion Monitor daily CBC 11/21 hemoglobin improved only to 8.4 continue to monitor The patient received Epogen shots for chronic anemia # acute kidney injury on top of chronic kidney disease likely secondary to vasomotor nephropathy IV fluid resuscitation is ordered Monitor daily metabolic panel 11/21 the patient's home dose of metaxalone is held as well as furosemide- renal function is improving # mechanical mitral valve On Coumadin with a goal of an INR between 2.5 and 3.5 # status post clipping of the tricuspid valve # permanent atrial fibrillation Continue digoxin # DVT prophylaxis Continue Coumadin Disposition awaiting physical therapy eval Date of Service: Nov 21, 2024 Billing Provider: ASHISH NEWTON DO Common Visit Codes: [id number] INP/OBS CARE(HIGH) Problem Qualifiers (1) Anemia: Qualified Codes: N18.9 - Chronic kidney disease, unspecified; D63.1 - Anemia in chronic kidney disease ASHISH NEWTON DO Nov 21, 2024 18:42
[2024-11-21 20:00] VITALS: RESP 16; O2SAT 97
[2024-11-21] MEDS ORDERED: ACETAMINOPHEN PO SCH (20:00)
[2024-11-21] MEDS: insulin glargine (Lantus) pen - multi-dose SQ SCH (20:52)
[2024-11-21 22:00] VITALS: BP 115/53; PULSE 72; RESP 16; TEMP 97.2; O2SAT 97
[2024-11-22 05:59] LABS: MEAN PLATELET VOLUME 11.1 FL (7.4-10.4); RED CELL DISTRIBUTION WIDTH 18.3 % (11.5-14.5)
[2024-11-22 06:00] VITALS: BP 106/56; PULSE 70; RESP 15; TEMP 97.7; O2SAT 96
[2024-11-22 06:04] LABS: INR 2.5 INR
[2024-11-22 06:12] LABS: CREATININE 2.60 MG/DL (0.60-1.10); TOTAL CARBON DIOXIDE 25.5 MMOL/L (24-32); eCRCL 23 ML/MIN; eGFR 24 ML/MIN
[2024-11-22 08:02] VITALS: BP 116/61; PULSE 69
[2024-11-22] MEDS: digoxin 125mcg (0.125mg) tablet PO SCH (08:04)
[2024-11-22] MEDS: cyanocobalamin 500mcg tablet PO SCH (08:05)
[2024-11-22 10:00] VITALS: BP 116/56; PULSE 70; RESP 17; TEMP 97.2; O2SAT 98
[2024-11-22] MEDS: normal saline 1000ml 1,000 ML IV SCH (15:31)
[2024-11-22 18:00] VITALS: BP 103/50; PULSE 72; RESP 16; TEMP 98; O2SAT 97
[2024-11-22] MEDS: warfarin 5mg tablet PO ONE (19:12)
[2024-11-22 22:00] VITALS: BP 105/58; PULSE 71; RESP 16; TEMP 97.9; O2SAT 96
[2024-11-23 05:53] LABS: MEAN PLATELET VOLUME 10.6 FL (7.4-10.4); RED CELL DISTRIBUTION WIDTH 18.6 % (11.5-14.5)
[2024-11-23 06:00] VITALS: BP 105/59; PULSE 72; RESP 16; TEMP 97.6; O2SAT 97
[2024-11-23 06:20] LABS: CREATININE 2.24 MG/DL (0.60-1.10); TOTAL CARBON DIOXIDE 24.1 MMOL/L (24-32); eCRCL 27 ML/MIN; eGFR 29 ML/MIN
[2024-11-23 06:35] LABS: INR 2.0 INR
[2024-11-23 10:00] VITALS: BP 115/57; PULSE 74; RESP 16; TEMP 98.9; O2SAT 97
--- NOTE | 2024-11-23 10:35 | PROGRESS NOTE ---
Daily Progress Note Providers to CC ~ Antibiotic Timeout Antibiotic Ordered?: No Subjective No new complaints. Patient is seen resting comfortably. States he is getting bored. Objective Vital Signs Date Time Temp Pulse Resp B/P (MAP) Pulse Ox O2 Delivery O2 Flow Rate FiO2 11/23/24 08:13 76 11/23/24 06:00 97.6 16 105/59 (74) 97 Room Air 11/22/24 08:00 0.0 Result Diagram: 11/23/2443311/23/24433 Gen. awake alert oriented asymptomatic HEENT: Normocephalic, atraumatic, extraocular movements are intact, sclera anicteric, conjunctiva pinkish, moist oral mucosa, no rash or ulcers. NECK: Supple, no JVD, trachea midline. CHEST: Clear to auscultation, no wheezes crackles or rhonchi. HEART: Regular rate rhythm, no murmur gallop or rub. ABDOMEN: Soft, nontender, no organomegaly. EXTREMITIES: No cyanosis clubbing or edema. NEURO EXAM: Grossly nonfocal. MUSCULOSKELETAL : No joint swelling or deformities. SKIN: No rash or ulcers noted. Coagulation Studies Laboratory Tests Test 11/23/24 04:34 Prothrombin Time 18.8 SECONDS (9.0-12.0) H INR International Normalized Ratio 2.0 INR Coagulation Comments Other Results Medications reviewed Problem\Assessment\Plan Problems/Diagnosis: (1) Anemia # Generalized weakness with a fatigue :Likely secondary to anemia. Patient received blood transfusion. # Acute kidney injury /chronic kidney disease likely secondary to vasomotor nephropathy due to diuretics. Diuretics on hold.Continue IVF . # Mechanical mitral valve On Coumadin with a goal of an INR between 2.5 and 3.5 # Status post clipping of the tricuspid valve # Permanent atrial fibrillation : Continue digoxin # DVT prophylaxis : Continue Coumadin Date of Service: Nov 23, 2024 Billing Provider: RONEN DALY MD Common Visit Codes: 15617-SNI/OBS DISCH DAY >30min Problem Qualifiers (1) Anemia: Qualified Codes: N18.9 - Chronic kidney disease, unspecified; D63.1 - Anemia in chronic kidney disease RONEN DALY MD Nov 23, 2024 10:35
[2024-11-23 11:01] VITALS: BP 115/57; PULSE 74; RESP 16; TEMP 98.9; O2SAT 97
--- NOTE | 2024-11-23 12:50 | DISCHARGE SUMMARY ---
Discharge Summary Providers to CC ~ Discharge Summary Admission Diagnosis: Hypotension\ SEAN\ Anemia Hospital Course DATE OF ADMISSION: 11/20/2024 DATE OF DISCHARGE:11/23/24 Discharge Diagnosis\Comment: SEAN due to vasomotor nephropathy from diuretics Operations\Procedures: None Consultants: None Complications: None Condition on DC: Stable Continued Medications: Acetaminophen (Acetaminophen) 500 Mg Tablet 2 TABLET PO BID Allopurinol* (Allopurinol*) 100 Mg Tablet 2 TAB PO DAILY, TAB Cyanocobalamin* (Vitamin B-12*) 500 Mcg Tablet 1 TAB PO DAILY for 30 Days, #30 TAB Digoxin (Digitek) 125 Mcg (0.125 Mg) Tablet 1 TABLET PO DAILY Epoetin Troy (Epogen) 4,000 Unit/Ml Vial Ferrous Sulfate* (Ferrous Sulfate*) 325 Mg Tablet 1 TAB PO DAILY, TAB Gabapentin (Gabapentin) 300 Mg Capsule 1 CAP PO TID Insulin Glargine,Hum.rec.anlog* (Lantus*) 100 Unit/1 Ml Vial 40 UNITS SUBCUT DAILY for 30 Days, #15 ML Insuln Asp Prt/Insulin Aspart (Novolog Mix 70-30 Flexpen Syrn) 100 Unit/Ml (70- 30) Insuln.pen 3 ML SQ, UNIT Lisinopril* (Zestril*) 5 Mg Tablet 1 TABLET PO DAILY Metoprolol Tartrate* (Lopressor tablet*) 25 Mg Tablet 1 TABLET PO BID Simvastatin (Simvastatin) 40 Mg Tablet 1 TABLET PO HS Sitagliptin (Sitagliptin) 25 Mg Tablet 1 TAB PO DAILY Warfarin Sodium (Warfarin Sodium) 5 Mg Tablet 1 TAB PO MON,E, BONILLA,MON for 30 Days, #30 TAB 0 Refills Warfarin Sodium* (Coumadin*) 7.5 Mg Tablet 1 TABLET PO MON,WED,FRI Discontinued Medications: Furosemide (Lasix) 20 Mg Tablet 4 TAB PO BID for 30 Days, #30 TAB 0 Refills Metolazone (ZAROXOLYN tablet) 2.5 Mg Tablet 1 TAB PO DAILY for 30 Days, #30 TAB 0 Refills Metolazone (Metolazone) 2.5 Mg Tablet 1 TAB PO DAILY PRN for PRN for 30 Days, #30 TAB 0 Refills Potassium Chloride (Klor-Con M20) 20 Meq Tab.er.prt 1 TABLET PO DAILY Spironolactone (Spironolactone) 25 Mg Tablet 1 TABLET PO BID Discharge Summary: Reason for admission : 79 year old male presented for evaluation of generalized weakness. Please refer to admission H $ P for further details. Hospital course : Patient was admitted on the monitored floor and his hospital course is as follows. # Generalized weakness with a fatigue :Likely secondary to anemia and dehydration : Patient received blood transfusion and IVF. Reported improvement in his symptoms. # Acute kidney injury /chronic kidney disease likely secondary to vasomotor nephropathy due to diuretics. Diuretics placed on hold and have been discontinued upon discharge. Patient is advised to follow up # Mechanical mitral valve : On Coumadin with a goal of an INR between 2.5 and 3.5 # Status post clipping of the tricuspid valve # Permanent atrial fibrillation : Continued digoxin # DVT prophylaxis : Continue Coumadin Discharge day exam : I examined the patient on the day of discharge. Gen. awake alert oriented asymptomatic HEENT: Normocephalic, atraumatic, extraocular movements are intact, sclera anicteric, conjunctiva pinkish, moist oral mucosa, no rash or ulcers. NECK: Supple, no JVD, trachea midline. CHEST: Clear to auscultation, no wheezes crackles or rhonchi. HEART: Regular rate rhythm, no murmur gallop or rub. ABDOMEN: Soft, nontender, no organomegaly. EXTREMITIES: No cyanosis clubbing or edema. NEURO EXAM: Grossly nonfocal. MUSCULOSKELETAL : No joint swelling or deformities. SKIN: No rash or ulcers noted. Disposition : Home Follow up lab : BMP *Problems/Diagnosis: (1) Anemia Status: Acute Total Time Spent on D/C: > 30 Minutes Date of Service: Nov 23, 2024 Billing Provider: RONEN DALY MD Common Visit Codes: 83455-CRS/OBS DISCH DAY >30min Problem Qualifiers (1) Anemia: Qualified Codes: N18.9 - Chronic kidney disease, unspecified; D63.1 - Anemia in chronic kidney disease RONEN DALY MD Nov 23, 2024 12:50
--- NOTE | 2024-11-23 15:34 | PROGRESS NOTE ---
DATE: 11/22/2024 DICTATING PHYSICIAN: Jos Agrawal MD PROGRESS NOTE SUBJECTIVE: No new complaints. The patient wants to go home. OBJECTIVE: VITAL SIGNS: Reviewed. Temperature is 97.2, pulse is 70, respiratory rate is 17, blood pressure is 116/56, O2 saturation is 98% on room air. HEENT: Normocephalic, atraumatic. Extraocular movements are intact. NECK: Supple. CHEST: Clear to auscultation, no wheezes, rales, or rhonchi. HEART: Regular rate and rhythm, no murmur, gallop or rub. ABDOMEN: Soft and nontender, no organomegaly. EXTREMITIES: No cyanosis, clubbing, or edema. NEUROLOGIC: Nonfocal. LABORATORY DATA: Sodium is 139, potassium 4.1, chloride 104, bicarbonate is 25.5, BUN is 84, creatinine is 2.60. WBC count is 7.3, hemoglobin 8.3, hematocrit is 24.5, platelet count is 115, neutrophils are 76.9%, lymphocytes 9.4%. ASSESSMENT AND PLAN: A 79-year-old male presented to the ER for evaluation of weakness. The patient has a history of CKD and received Epogen. * SEAN/CKD: Likely due to diuretics. The patient has been on Lasix and spironolactone as outpatient. Creatinine is trending down. Continue monitor. * IDDM: Carb controlled diet. Hyper/hypoglycemia protocol. * Hypertension: On IV hydralazine p.r.n. * History of rheumatic disease. The patient has had a mechanical valve replacement. Monitor I's and O's. * History of AFib: Rate controlled. Continue warfarin. * Gout: Continue allopurinol. * Hyperlipidemia: Continue simvastatin. * Disposition: Home and creatinine . Jos Agrawal MD TID: [id number] RECEIPT: [id number] /[id number]
== END 2024-11-23 14:20 | disposition home health service (06) | DRG 811 ==
LOC: ER 09:38 → ED HOLD 12:54 → ORTHO 4S 14:50
PROVIDERS: ADMIT Family Medicine; ATTEND Family Medicine
PROC: 30233N1 Transfusion of Nonautologous Red Blood Cells into Peripheral Vein, Percutaneous Approach (ICD-10-PCS; principal; 2024-11-20)
DX: D64.9 Anemia, unspecified (principal); N17.0 Acute kidney failure with tubular necrosis; I48.21 Permanent atrial fibrillation; I12.9 Hypertensive chronic kidney disease with stage 1 through stage 4 chronic kidney disease, or unspecified chronic kidney disease; N18.9 Chronic kidney disease, unspecified; E86.0 Dehydration; Z95.2 Presence of prosthetic heart valve; Z79.01 Long term (current) use of anticoagulants; E78.5 Hyperlipidemia, unspecified; M10.9 Gout, unspecified; E11.22 Type 2 diabetes mellitus with diabetic chronic kidney disease; Z79.4 Long term (current) use of insulin; T50.2X5A Adverse effect of carbonic-anhydrase inhibitors, benzothiadiazides and other diuretics, initial encounter; Z79.84 Long term (current) use of oral hypoglycemic drugs; Z86.73 Personal history of transient ischemic attack (TIA), and cerebral infarction without residual deficits; Z95.0 Presence of cardiac pacemaker; Y92.89 Other specified places as the place of occurrence of the external cause
CPT/HCPCS: 36415; 36430; 71045; 80048; 80053; 81001; 82948; 83036; 83605; 83735; 83880; 84484; 85008; 85025; 85610; 86885; 86900; 86901; 86920; 87040; 87081; 93005; 96360; 97161; 97530; 99285; A6258; G0378; J1815; J7030; J7040; P9016